=== PATIENT | male | born 1965 | race Caucasian/White ===

== ENCOUNTER 2016-05-24 21:10 | Inpatient (IN) | payer BC ==
--- NOTE | 2016-05-24 22:11 | EDM.PDOC ---
ED HPI RENAL/ - General Chief Complaint: Genitourinary Problem Stated Complaint: KIDNEY INFECTION Time Seen by Provider: 05/24/16 21:55 Source of Information: Reports: Patient, Provider (Camille Wu [facility]) History Limitations: Reports: No limitations - History of Present Illness INITIAL COMMENTS - FREE TEXT/NARRATIVE: Patient presents from the [facility] for evaluation treatment of pyelonephritis. Patient has been experiencing right flank pain for the last 2 days. He reports last night the flank pain was particularly severe. He has narcotic medication at home but did not want to take any. He has been taking Tylenol to control the pain and fevers. Fever was highest of 102.5 at home. Patient has a urostomy and a stent to the right ureter. He is scheduled to have the stent removed in about one week. He follows with urology in [place]. Patient past medical history of bladder cancer. This was treated at [facility]. He has been remission since July of 2014. He is not currently on chemo or radiation for the cancer. Patient has noticed that his urine is darker than normal. He denies any nausea or vomiting. last dose of Tylenol was around 7 PM tonight. Patient was seen at the [facility] today. Labs were done. He lewis an elevated white blood cell count of 16 and a CRP of 8.1. Urine did suggest a urinary tract infection. Urine was sent for culture. Patient was given a 1 L fluid bolus in the clinic after he became slightly hypotensive with a blood pressure of 92/72 and had a near syncopal episode. He was also given IV Rocephin 1 gram. Patient was sent home on macrobid. Patient also has a past medical history of Crohn's disease. He denies any diarrhea, melena, hematochezia or abdominal pain. Location: Reports: flank (right) - Related Data Allergies/ADRs: Allergies Allergy/AdvReac Type Severity Reaction Status Date / Time sulfamethoxazole Allergy Renal Verified 05/24/16 21:24 [From Bactrim] Failure trimethoprim [From Bactrim] Allergy Renal Verified 05/24/16 21:24 Failure Home Meds: Home Meds InFLIXimab [Remicade] 100 mg IV ASDIRECTED 05/24/16 [History] Nitrofurantoin Monohyd/M-Cryst [Macrobid 100 mg Capsule] 100 mg PO BID 05/24/16 [History] Rosuvastatin [Crestor] 10 mg PO DAILY 05/24/16 [History] Past Medical History HEENT History: Reports: Impaired vision Cardiovascular History: Reports: High cholesterol Gastrointestinal History: Reports: Other (see below) Other Gastrointestinal History: crohn's disease Genitourinary History: Reports: Renal calculus, Urostomy, Other (see below) Other Genitourinary History: ureter stent to right side Neurological History: Reports: Headaches, chronic Immunologic History: Reports: Other (see below) Other Immunologic History: is on remicade Oncologic (Cancer) History: Reports: Basal cell carcinoma, Bladder Dermatologic History: Reports: Other (see below) Other Dermatologic History: basal cell carcinoma to nose - Infectious Disease History Infectious Disease History: Reports: Chicken pox - Past Surgical History GI Surgical History: Reports: Appendectomy, Colonoscopy, Small bowel Other GI Surgeries/Procedures: small bowel resection 2014, last colonoscopy January 2016 Musculoskeletal Surgical History: Reports: Arthroscopic knee Dermatological Surgical History: Reports: Skin biopsy Social & Family History - Family History Family Medical History: Noncontributory - Tobacco Use Smoking Status *Q: Current Every Day Smoker Years of Tobacco use: 30 Packs/Tins Daily: 0.5 - Caffeine Use Caffeine Use: Reports: Soda - Recreational Drug Use Recreational Drug Use: No ED ROS GENERAL - Review of Systems Review Of Systems: See Below Constitutional: Reports: fever GI/Abdominal: Denies: Abdominal pain, Hematochezia, Melena, Nausea, Vomiting : Reports: flank pain (right), other (urine is darker than normal). Denies: hematuria ED EXAM, RENAL/ - Physical Exam Exam: See Below Exam Limited By: No limitations General Appearance: alert, WD/WN, no apparent distress Respiratory/Chest: no respiratory distress, lungs clear, normal breath sounds Cardiovascular: normal peripheral pulses, regular rate, rhythm, no murmur GI/Abdominal: normal bowel sounds, soft, non tender (Male) Exam: Other (urostomy to the left mid abdomen with stent in place) Neurological: alert, oriented, normal cognition Psychiatric: normal affect, normal mood Skin Exam: Warm, Dry, Normal color Course - Vital Signs Last Recorded V/S: Last Vital Signs Temp 39.2 C H 05/24/16 23:52 Pulse 100 05/24/16 21:19 Resp 18 05/24/16 21:19 BP 129/78 05/24/16 21:19 Pulse Ox 96 05/24/16 21:19 - Orders/Labs/Meds Orders: Active Orders 24 hr Category Date Time Status Peripheral IV Care [RC] . DIRECTED Care 05/24/16 23:23 Active Abdomen Pelvis wo Cont [CT] Stat Exams 05/24/16 21:47 Taken CULTURE BLOOD [BC] Stat Lab 05/24/16 22:15 Received CULTURE BLOOD [BC] Stat Lab 05/24/16 22:28 Received Levofloxacin/Dextrose 5%-Water [Levaquin in D5W 750 MG/ Med 05/24/16 23:33 Active 150 ML] 750 mg Premix Bag 1 bag IV ONETIME Sodium Chloride 0.9% [Normal Saline] 1,000 ml Med 05/24/16 23:22 Active IV ONETIME Sodium Chloride 0.9% [Normal Saline] 1,000 ml Med 05/24/16 23:34 Active IV ONETIME Sodium Chloride 0.9% [Saline Flush] Med 05/24/16 23:23 Active 10 ml FLUSH ASDIRECTED PRN Blood Culture x2 Reflex Set [OM.PC] Stat Oth 05/24/16 21:47 Ordered Peripheral IV Insertion Adult [OM.PC] Routine Oth 05/24/16 23:22 Ordered Medication Orders Sodium Chloride (Normal Saline) 1,000 mls @ 150 mls/hr IV ONETIME ONE Stop: 05/25/16 06:01 Levofloxacin/Dextrose 750 mg/ (Premix) 150 mls @ 100 mls/hr IV ONETIME ONE Stop: 05/25/16 01:02 Last Admin: 05/24/16 23:52 Dose: 100 mls/hr Sodium Chloride (Normal Saline) 1,000 mls @ 999 mls/hr IV ONETIME ONE Stop: 05/25/16 00:34 Last Admin: 05/24/16 23:52 Dose: 999 mls/hr Sodium Chloride (Saline Flush) 10 ml FLUSH ASDIRECTED PRN PRN Reason: Keep Vein Open Labs: Laboratory Tests 05/24/16 05/24/16 05/24/16 Range/Units 22:28 22:28 22:28 WBC 16.52 H (4.23-9.07) K/mm3 RBC 4.14 L (4.63-6.08) M/mm3 Hgb 13.7 (13.7-17.5) gm/L Hct 41.4 (40.1-51.0) % MCV 100.0 H (79.0-92.2) fl MCH 33.1 H (25.7-32.2) pg MCHC 33.1 (32.2-35.5) g/dl RDW Std Deviation 49.6 H (35.1-43.9) fL Plt Count 158 L (163-337) K/mm3 MPV 9.9 (9.4-12.3) fl Neut % (Auto) 78.3 H (34.0-67.9) % Lymph % (Auto) 10.7 L (21.8-53.1) % [place] % (Auto) 10.3 (5.3-12.2) % Eos % (Auto) 0.1 L (0.8-7.0) Baso % (Auto) 0.2 (0.1-1.2) % Neut # (Auto) 12.94 H (1.78-5.38) K/mm3 Lymph # (Auto) 1.77 (1.32-3.57) K/mm3 [place] # (Auto) 1.70 H (0.30-0.82) K/mm3 Eos # (Auto) 0.02 L (0.04-0.54) K/mm3 Baso # (Auto) 0.03 (0.01-0.08) K/mm3 Manual Slide Review Abnormal smear Lactic Acid 1.8 (0.4-2.0) mmol/L C-Reactive Protein 17.6 H* (<1.0) mg/dL Meds: Medications Generic Name Dose Route Start Last Admin Trade Name Freq PRN Reason Stop Dose Admin Sodium Chloride 1,000 mls @ 150 mls/hr 05/24/16 23:22 Normal Saline IV 05/25/16 06:01 ONETIME ONE Levofloxacin/Dextrose 750 mg/ 150 mls @ 100 mls/hr 05/24/16 23:33 05/24/16 23 :52 Premix IV 05/25/16 01:02 100 mls/hr ONETIME ONE Administration Sodium Chloride 1,000 mls @ 999 mls/hr 05/24/16 23:34 05/24/16 23:52 Normal Saline IV 05/25/16 00:34 999 mls/hr ONETIME ONE Administration Sodium Chloride 10 ml 05/24/16 23:23 Saline Flush FLUSH ASDIRECTED PRN Keep Vein Open Discontinued Medications Generic Name Dose Route Start Last Admin Trade Name Kiran PRN Reason Stop Dose Admin Acetaminophen 650 mg 05/24/16 23:23 05/24/16 23:52 Tylenol PO 05/24/16 23:24 650 mg NOW ONE Administration - Radiology Interpretation Free Text/Narrative:: CT of the abdomen and pelvis impression per vrad 1. right ureteral stent appears in good position with no hydronephrosis. 2. Right renal. Fraction is nonspecific. This could be from recent obstruction, recent intervention or for pyelonephritis. 3. Right-sided neprolithiasis. 4. Parastomal hernia. CT Results Date: 05/24/16 - Re-Assessments/Exams Free Text/Narrative Re-Assessment/Exam: 05/24/16 23:52 I reviewed the patient's labs from earlier today. His white blood cell count was elevated at 16.84 ESR was elevated at 34. CRP was elevated 8.1. Sodium is 138, potassium was 3.3. Anion gap was 18.3. Creatinine was 1.8. UA showed 3+ protein, 2+ blood, positive nitrates, 1+ leukocytes and many bacteria on microscopy. I contacted the lab and they indeed received the urine for culture. Patient has blood cultures pending. I repeated the patient's CBC, CRP and added on a lactic acid. whirw Blood cell count returned elevated at 16.52, hgb is 13.7 and platelets are 158. CRP is elevated 17.6. . Lactic acid within normal limits a 1.8. I reviewed the patient's case with him. I feel that he would benefit from inpatient admission. He agrees to this. I discussed the case with Dr. Ross, hospitalist, she agrees to the admission. She asked that we give him a 1 L normal saline bolus followed by normal saline at 150 mils per hour. She also asked we give Levaquin 750. Departure - Departure Time of Disposition: 23:57 Disposition: Admitted As Inpatient 64 Condition: serious Clinical Impression: Pyelonephritis Forms: ED Department Discharge Additional Instructions: Patient to be admitted to med/surg with tele under Dr. Ross. - My Orders Last 24 Hours: My Active Orders 04/17/17 21:47 Abdomen Pelvis wo Cont [CT] Stat Blood Culture x2 Reflex Set [OM.PC] Stat 05/24/16 22:15 CULTURE BLOOD [BC] Stat 05/24/16 22:28 CULTURE BLOOD [BC] Stat 05/24/16 23:22 Sodium Chloride 0.9% [Normal Saline] 1,000 ml IV ONETIME Peripheral IV Insertion Adult [OM.PC] Routine 05/24/16 23:23 Peripheral IV Care [RC] . DIRECTED Sodium Chloride 0.9% [Saline Flush] 10 ml FLUSH ASDIRECTED PRN 05/24/16 23:33 Levofloxacin/Dextrose 5%-Water [Levaquin in D5W 750 MG/150 ML] 750 mg Premix Bag 1 bag IV ONETIME 05/24/16 23:34 Sodium Chloride 0.9% [Normal Saline] 1,000 ml IV ONETIME - Assessment/Plan Last 24 Hours: My Active Orders 05/24/16 21:47 Abdomen Pelvis wo Cont [CT] Stat Blood Culture x2 Reflex Set [OM.PC] Stat 05/24/16 22:15 CULTURE BLOOD [BC] Stat 05/24/16 22:28 CULTURE BLOOD [BC] Stat 05/24/16 23:22 Sodium Chloride 0.9% [Normal Saline] 1,000 ml IV ONETIME Peripheral IV Insertion Adult [OM.PC] Routine 05/24/16 23:23 Peripheral IV Care [RC] . DIRECTED Sodium Chloride 0.9% [Saline Flush] 10 ml FLUSH ASDIRECTED PRN 05/24/16 23:33 Levofloxacin/Dextrose 5%-Water [Levaquin in D5W 750 MG/150 ML] 750 mg Premix Bag 1 bag IV ONETIME 05/24/16 23:34 Sodium Chloride 0.9% [Normal Saline] 1,000 ml IV ONETIME
[2016-05-24] MEDS ORDERED: Sodium Chloride 0.9% 1,000 ML IV ONE ×2 (23:22→23:34)
[2016-05-24] MEDS ORDERED: Acetaminophen 325 MG Tab PO ONE (23:23)
[2016-05-24] MEDS ORDERED: Sodium Chloride 0.9% 10 ML Syringe FLUSH PRN (23:23)
[2016-05-24] MEDS ORDERED: Levofloxacin/Dextrose 5%-Water 750 MG in Premix Bag 1 BAG IV ONE (23:33)
[2016-05-25] MEDS ORDERED: Temazepam 30 MG Cap PO PRN (00:23)
[2016-05-25] MEDS ORDERED: Morphine 2 MG/ML Syringe IVPUSH PRN (00:24)
[2016-05-25] MEDS: Sodium Chloride 0.9% 1,000 ML IV SCH ×4 (04:06→23:51)
[2016-05-25] MEDS: Acetaminophen 325 MG Tab PO PRN ×3 (07:12→23:50)
[2016-05-25] MEDS ORDERED: Acetaminophen/HYDROcodone 325-5 MG Tab PO PRN (08:14)
--- NOTE | 2016-05-25 08:54 | CT ---
CT abdomen and pelvis Technique: Multiple axial sections were obtained from the top of the liver inferiorly through the pubic symphysis. Intravenous and oral contrast not utilized. Study has been performed as a ureteral stone protocol. Comparison: Previous CT abdomen and pelvis exam of 10/31/13 is available. Findings: Interval ileal conduit is seen from prior study with bladder having been removed. There is a right ureteral stent being seen within the right renal pelvis which extends out the ileal conduit ostomy. Left ureter is mildly prominent but no obstructing calculi are seen and findings likely relate to the previous surgery. Small nonobstructing stone noted within the right kidney measuring 5 mm. Low-density lesion noted within the lower left kidney compatible with a cyst which appears stable from prior exam measuring about 1.4 cm. Inflammatory-type change noted around the right kidney. Visualized lung bases show nothing acute. Liver shows diffuse fatty infiltration with no focal abnormality. Spleen appears within normal limits. Adrenal glands show no nodule. Pancreas is within normal limits. Aorta and iliac vessels shows atherosclerotic change without aneurysmal dilatation. Retroperitoneal surgical clips noted at the aortoiliac bifurcation. No pelvic mass or adenopathy is seen. Surgical clips seen along the pelvic sidewalls. Surgical anastomotic sutures noted within a portion of ileum within the upper right abdomen from previous surgery. Minimal increased stool noted within the colon. Peristomal hernia is identified within the left abdomen containing nondilated loops of small bowel. Bone window setting show minimal degenerative change within the spine. Impression: 1. Ileal conduit surgery for prior bladder surgery. Stent within the right renal pelvis extending out the ileal conduit ostomy. Slightly prominent left ureter believed to be incidental and from prior surgery. Inflammatory change around the right kidney possibly due to previous surgical intervention with stent placement versus pyelonephritis if patient has correlating symptoms. 2. Peristomal hernia containing nondilated small bowel loops within the left abdomen. 3. Other incidental findings as described above. Agree with preliminary report issued by [employer] (preliminary report dictated on 05/25/16, 12:11 AM Central Time Diagnostic code #2
[2016-05-25] MEDS ORDERED: Rosuvastatin 10 MG Tab PO SCH (11:00)
[2016-05-25] MEDS: Nicotine 21 MG/24 Hr Patch TRDERM SCH (11:00)
--- NOTE | 2016-05-25 12:35 | PCM.HP ---
H&P History of Present Illness - General Date of Service: 05/25/16 Admit Problem/Dx: Admission Diagnosis/Problem Admission Diagnosis/Problem Pyelonephritis Source of Information: Provider History Limitations: Reports: No limitations - History of Present Illness Initial Comments - Free Text/Narative: 50 year old male with history of bladder cancer is s/p urostomy was seen at the [facility] and was treated empirically for a UTI. he has a urosotmy and has a history of multiple UTIs. He was febrile on presentation to the clinic with a temp of 102.0 F. A CBC at that time documented a white count of 16.84, the UA was positive for nitrite as well as LE. The CMP documented a LEONEL/CR of 24/ 1.8 with a GFR of 40. The patient will be admitted for a UTI to the [facility]. Onset of Symptoms: Reports: gradual Duration of Symptoms: Reports: Day(s):, Getting worse Location: Reports: abdomen Quality: Reports: Same as previous episode Severity: moderate Improves with: Reports: Medication Worsens with: Reports: None Associated Symptoms: Reports: diaphoresis, fever/chills, nausea/vomiting right back Pain Score (Numeric/FACES): 4 - Related Data Allergies/Adverse Reactions: Allergies Allergy/AdvReac Type Severity Reaction Status Date / Time sulfamethoxazole AdvReac Renal Verified 05/25/16 10:58 [From Bactrim] Failure trimethoprim [From Bactrim] AdvReac Renal Verified 05/25/16 10:58 Failure Home Medications: Home Meds InFLIXimab [Remicade] 100 mg IV ASDIRECTED 05/24/16 [History] Nitrofurantoin Monohyd/M-Cryst [Macrobid 100 mg Capsule] 100 mg PO BID 05/24/16 [History] Rosuvastatin [Crestor] 10 mg PO ASDIRECTED 05/24/16 [History] Past Medical History HEENT History: Reports: Impaired vision Cardiovascular History: Reports: High cholesterol Gastrointestinal History: Reports: Bowel obstruction, Other (see below) Other Gastrointestinal History: crohn's disease Genitourinary History: Reports: Renal calculus, Urostomy, Other (see below) Other Genitourinary History: ureter stent to right side Neurological History: Reports: Headaches, chronic Immunologic History: Reports: Other (see below) Other Immunologic History: is on remicade Oncologic (Cancer) History: Reports: Basal cell carcinoma, Bladder Dermatologic History: Reports: Other (see below) Other Dermatologic History: basal cell carcinoma to nose - Infectious Disease History Infectious Disease History: Reports: Chicken pox - Past Surgical History HEENT Surgical History: Reports: Adenoidectomy, Tonsillectomy Cardiovascular Surgical History: Reports: None GI Surgical History: Reports: Appendectomy, Colonoscopy, Small bowel Other GI Surgeries/Procedures: small bowel resection 2014, last colonoscopy January 2016 Musculoskeletal Surgical History: Reports: Arthroscopic knee Oncologic Surgical History: Reports: Other (see below) Other Oncologic Surgeries/Procedures: Bladder removed july 2014. Pt has urostomy with stents placed may 2015. Stents are changed every 3 months due to change 06/01/16 Dermatological Surgical History: Reports: Skin biopsy Social & Family History - Family History Family Medical History: Noncontributory - Tobacco Use Smoking Status *Q: Current Every Day Smoker Years of Tobacco use: 30 Packs/Tins Daily: 0 Used Tobacco, but Quit: No Second Hand Smoke Exposure: No - Caffeine Use Caffeine Use: Reports: Soda - Recreational Drug Use Recreational Drug Use: No H&P Review of Systems - Review of Systems: Review Of Systems: See Below General: Reports: chills, malaise, weakness HEENT: Reports: no symptoms Pulmonary: Reports: No Symptoms Cardiovascular: Reports: no symptoms Gastrointestinal: Reports: Abdominal pain Genitourinary: Reports: burning, pain Musculoskeletal: Reports: back pain (right sided). Denies: no symptoms Skin: Reports: no symptoms Psychiatric: Reports: no symptoms Neurological: Reports: Dizziness Hematologic/Lymphatic: Reports: no symptoms Immunologic: Reports: no symptoms Exam - Exam Exam: See Below - Vital Signs Vital Signs: Last Vital Signs Temp 36.9 C 05/25/16 12:07 Pulse 65 05/25/16 12:07 Resp 14 05/25/16 12:07 BP 111/78 05/25/16 12:07 Pulse Ox 95 05/25/16 12:07 Weight: 109.86 kg - Exam Quality Assessment: urinary catheter, DVT prophylaxis General: alert, oriented, cooperative HEENT: Nares patent, Normal nasal septum, Pupils equal, Pupils reactive Neck: supple, trachea midline Lungs: Normal respiratory effort Cardiovascular: regular rate, regular rhythm Abdomen: normal bowel sounds, soft (Male) Exam: Other (Urostomy in situ) Rectal (Males) Exam: Normal exam Back Exam: normal inspection Extremities: normal inspection Skin: warm Neurological: cranial nerves intact, normal speech Neuro Extensive - Mental Status: alert, oriented x3, normal mood/affect, normal cognition, memory intact Neuro Extensive - Motor, Sensory, Reflexes: CN II-XII intact Psychiatric: alert - Patient Data Lab Results last 24 hrs: Laboratory Results - last 24 hr 05/25/16 05/25/16 05/25/16 Range/Units 06:10 06:19 06:19 WBC 14.02 H (4.23-9.07) K/mm3 RBC 4.21 L (4.63-6.08) M/mm3 Hgb 13.8 (13.7-17.5) gm/L Hct 42.2 (40.1-51.0) % MCV 100.2 H (79.0-92.2) fl MCH 32.8 H (25.7-32.2) pg MCHC 32.7 (32.2-35.5) g/dl RDW Std Deviation 50.2 H (35.1-43.9) fL Plt Count 159 L (163-337) K/mm3 MPV 10.7 (9.4-12.3) fl Neut % (Auto) 74.5 H (34.0-67.9) % Lymph % (Auto) 14.1 L (21.8-53.1) % [place] % (Auto) 10.8 (5.3-12.2) % Eos % (Auto) 0.1 L (0.8-7.0) Baso % (Auto) 0.1 (0.1-1.2) % Neut # (Auto) 10.46 H (1.78-5.38) K/mm3 Lymph # (Auto) 1.97 (1.32-3.57) K/mm3 [place] # (Auto) 1.51 H (0.30-0.82) K/mm3 Eos # (Auto) 0.01 L (0.04-0.54) K/mm3 Baso # (Auto) 0.02 (0.01-0.08) K/mm3 Manual Slide Review Normal smear Sodium 138 (136-145) mEq/L Potassium 3.8 (3.5-5.1) mEq/L Chloride 104 (98-107) mEq/L Carbon Dioxide 22 (21-32) mEq/L Anion Gap 15.8 H (5-15) BUN 18 (7-18) mg/dL Creatinine 1.5 H (0.7-1.3) mg/dL Est Cr Clr Drug Dosing 61.36 mL/min Estimated GFR (MDRD) 49 (>60) mL/min BUN/Creatinine Ratio 12.0 L (14-18) Glucose 114 H (74-106) mg/dL Lactic Acid 1.6 (0.4-2.0) mmol/L Calcium 8.4 L (8.5-10.1) mg/dL C-Reactive Protein 21.4 H* (<1.0) mg/dL Result Diagrams: 05/25/16 06:19 05/25/16 06:19 *Q Meaningful Use (ADM) - VTE *Q VTE Criteria *Q: - Stroke *Q Stroke Criteria *Q: - AMI *Q AMI Criteria *Q: - Problem List (1) Bladder cancer SNOMED Code(s): 005557660 ICD Code: C67.9 - MALIGNANT NEOPLASM OF BLADDER, UNSPECIFIED Status: Acute Current Visit: Yes (2) Renal abscess SNOMED Code(s): 3418221 ICD Code: N15.1 - RENAL AND PERINEPHRIC ABSCESS Status: Acute Current Visit: Yes (3) Pyelonephritis SNOMED Code(s): 91110140 ICD Code: N12 - TUBULO-INTERSTITIAL NEPHRITIS, NOT SPCF ACUTE OR CHRONIC Status: Acute Current Visit: Yes Problem List Initiated/Reviewed/Updated: Yes Orders Last 24hrs: Active Orders 24 hr Category Date Time Status Activity as Tolerated [RC] QSHIFT Care 05/25/16 00:26 Active Consult to [place] Nurse [CONS] Routine Cons 05/25/16 10:47 Active Heart Healthy Diet [DIET] Diet 05/25/16 Dinner Active BMP [BASIC METABOLIC PANEL,BMP] [CHEM] DAILY Lab 05/26/16 05:00 Ordered BMP [BASIC METABOLIC PANEL,BMP] [CHEM] DAILY Lab 05/27/16 05:00 Ordered BMP [BASIC METABOLIC PANEL,BMP] [CHEM] DAILY Lab 05/28/16 05:00 Ordered CBC WITH AUTO DIFF [HEME] DAILY Lab 05/26/16 05:00 Ordered CBC WITH AUTO DIFF [HEME] DAILY Lab 05/27/16 05:00 Ordered CBC WITH AUTO DIFF [HEME] DAILY Lab 05/28/16 05:00 Ordered CRP [C-REACTIVE PROTEIN] [CHEM] DAILY Lab 05/26/16 05:00 Ordered CRP [C-REACTIVE PROTEIN] [CHEM] DAILY Lab 05/27/16 05:00 Ordered CRP [C-REACTIVE PROTEIN] [CHEM] DAILY Lab 05/28/16 05:00 Ordered CULTURE URINE [RM] Routine Lab 05/25/16 12:30 Ordered LACTIC ACID [CHEM] DAILY Lab 05/26/16 05:00 Ordered LACTIC ACID [CHEM] DAILY Lab 05/27/16 05:00 Ordered Acetaminophen [Tylenol] Med 05/25/16 00:22 Active 650 mg PO Q6H PRN Acetaminophen/HYDROcodone [[place] 325-5 MG] Med 05/25/16 08:14 Active 1 - 2 tab PO Q4H PRN Morphine Med 05/25/16 00:24 Active 1 mg IVPUSH Q4H PRN Nicotine [Habitrol] Med 05/25/16 09:30 Active 21 mg TRDERM DAILY Remove Patch Med 05/26/16 09:00 Active 1 ea TRDERM DAILY Rosuvastatin [Crestor] Med 05/25/16 11:00 Active 10 mg PO Q48H Sodium Chloride 0.9% [Normal Saline] 1,000 ml Med 05/25/16 00:30 Active IV ASDIRECTED Temazepam [Restoril] Med 05/25/16 00:23 Active 30 mg PO BEDTIME PRN cefTRIAXone [Rocephin] 2 gm Med 05/25/16 13:00 Active Sodium Chloride 0.9% [Normal Saline] 100 ml IV Q24H Code Status [Resuscitation Status] Routine Resus Stat 05/25/16 00:26 Ordered Medication Orders Acetaminophen (Tylenol) 650 mg PO Q6H PRN PRN Reason: Pain Last Admin: 05/25/16 07:12 Dose: 650 mg Hydrocodone Bitart/Acetaminophen ([place] 325-5 Mg) 1 - 2 tab PO Q4H PRN PRN Reason: Pain Sodium Chloride (Normal Saline) 1,000 mls @ 150 mls/hr IV ASDIRECTED FANNY Last Admin: 05/25/16 11:07 Dose: 150 mls/hr Infusion: 05/25/16 10:47 Dose: 150 mls/hr Admin: 05/25/16 04:06 Dose: 150 mls/hr Ceftriaxone Sodium 2 gm/ (Sodium Chloride) 100 mls @ 200 mls/hr IV Q24H COUNT INCLUDES THE [facility] Miscellaneous Information (Remove Patch) 1 ea TRDERM DAILY COUNT INCLUDES THE [facility] Morphine Sulfate (Morphine) 1 mg IVPUSH Q4H PRN PRN Reason: Pain Nicotine (Habitrol) 21 mg TRDERM DAILY COUNT INCLUDES THE [facility] Last Admin: 05/25/16 11:00 Dose: Not Given Rosuvastatin Calcium (Crestor) 10 mg PO Q48H COUNT INCLUDES THE [facility] Last Admin: 05/25/16 11:07 Dose: 10 mg Sodium Chloride (Saline Flush) 10 ml FLUSH ASDIRECTED PRN PRN Reason: Keep Vein Open Last Admin: 05/24/16 23:56 Dose: 10 ml Temazepam (Restoril) 30 mg PO BEDTIME PRN PRN Reason: Insomnia Assessment/Plan Comment:: Impression: AUTI/pyelonephritis History of Bladder Cancer S/P Urostomy with stent History of multi-drug resistant UTIs Recent Yeast UTI completed Fluconazole as an outpatient. Leukocytosis Plan: MS tele Clear Liquid diet Initial dose of Levoquin in the ED, received Rocephin in the [facility]. Discuss options with pharmacy for UTI coverage. Obtain work up completed at the [facility] DVT/GI prophylaxis Home meds Daily Labs
[2016-05-25] MEDS: cefTRIAXone 2 GM in Sodium Chloride 0.9% 100 ML IV SCH (12:40)
[2016-05-25] MEDS ORDERED: Magnesium Hydroxide 400 MG/5 ML Susp 30 ML Cup PO PRN (18:20)
[2016-05-26] MEDS: Sodium Chloride 0.9% 1,000 ML IV SCH (06:59)
[2016-05-26] MEDS ORDERED: Sodium Chloride 0.9% 10 ML Syringe FLUSH PRN (10:15)
[2016-05-26] MEDS: REMOVE NICOTINE TRDERM SCH (10:20)
[2016-05-26] MEDS: Nicotine 21 MG/24 Hr Patch TRDERM SCH (10:20)
[2016-05-26] MEDS: Enoxaparin 40 MG/0.4 ML Syringe SUBCUT SCH (10:21)
[2016-05-26] MEDS ORDERED: Potassium Chloride 10% 20 MEQ/15 ML Soln 30 ML UD Cup PO ONE (10:35)
[2016-05-26] MEDS: cefTRIAXone 2 GM in Sodium Chloride 0.9% 100 ML IV SCH (12:16)
--- NOTE | 2016-05-26 13:41 | PCM.PN ---
- General Info Date of Service: 05/26/16 Functional Status: Reports: tolerating diet, ambulating, urinating - Review of Systems General: Reports: No Symptoms HEENT: Reports: no symptoms Pulmonary: Reports: no symptoms Cardiovascular: Reports: No Symptoms Gastrointestinal: Reports: No symptoms Genitourinary: Reports: no symptoms Musculoskeletal: Reports: no symptoms Skin: Reports: no symptoms Neurological: Reports: No Symptoms Psychiatric: Reports: no symptoms - Patient Data Vitals - most recent: Last Vital Signs Temp 36.8 C 05/26/16 11:50 Pulse 64 05/26/16 11:50 Resp 18 05/26/16 11:50 BP 141/86 H 05/26/16 11:50 Pulse Ox 98 05/26/16 11:50 Weight - most recent: 110.813 kg I&O - last 24 hours: Intake & Output 05/25/16 05/26/16 05/26/16 22:59 06:59 14:59 Intake Total 3711 2656 Output Total 800 2050 Balance 2911 606 Lab Results last 24 hrs: Laboratory Results - last 24 hr 05/26/16 05/26/16 05/26/16 Range/Units 04:37 04:37 04:37 WBC 9.58 H (4.23-9.07) K/mm3 RBC 3.65 L (4.63-6.08) M/mm3 Hgb 12.0 L (13.7-17.5) gm/L Hct 36.4 L (40.1-51.0) % MCV 99.7 H (79.0-92.2) fl MCH 32.9 H (25.7-32.2) pg MCHC 33.0 (32.2-35.5) g/dl RDW Std Deviation 50.0 H (35.1-43.9) fL Plt Count 150 L (163-337) K/mm3 MPV 10.0 (9.4-12.3) fl Neut % (Auto) 66.3 (34.0-67.9) % Lymph % (Auto) 20.7 L (21.8-53.1) % [place] % (Auto) 12.0 (5.3-12.2) % Eos % (Auto) 0.4 L (0.8-7.0) Baso % (Auto) 0.1 (0.1-1.2) % Neut # (Auto) 6.35 H (1.78-5.38) K/mm3 Lymph # (Auto) 1.98 (1.32-3.57) K/mm3 [place] # (Auto) 1.15 H (0.30-0.82) K/mm3 Eos # (Auto) 0.04 (0.04-0.54) K/mm3 Baso # (Auto) 0.01 (0.01-0.08) K/mm3 Sodium 137 (136-145) mEq/L Potassium 3.3 L (3.5-5.1) mEq/L Chloride 106 (98-107) mEq/L Carbon Dioxide 19 L (21-32) mEq/L Anion Gap 15.3 H (5-15) BUN 18 (7-18) mg/dL Creatinine 1.4 H (0.7-1.3) mg/dL Est Cr Clr Drug Dosing 65.74 mL/min Estimated GFR (MDRD) 53 (>60) mL/min BUN/Creatinine Ratio 12.9 L (14-18) Glucose 160 H (74-106) mg/dL Lactic Acid 1.1 (0.4-2.0) mmol/L Calcium 7.8 L (8.5-10.1) mg/dL C-Reactive Protein 15.9 H* (<1.0) mg/dL Med Orders - Current: Current Medications Acetaminophen (Tylenol) 650 mg PO Q6H PRN PRN Reason: Pain Last Admin: 05/25/16 23:50 Dose: 650 mg Hydrocodone Bitart/Acetaminophen ([place] 325-5 Mg) 1 - 2 tab PO Q4H PRN PRN Reason: Pain Enoxaparin Sodium (Lovenox) 40 mg SUBCUT DAILY [facility] Last Admin: 05/26/16 10:21 Dose: Not Given Sodium Chloride (Normal Saline) 1,000 mls @ 150 mls/hr IV ASDIRECTED [facility] Last Admin: 05/26/16 06:59 Dose: 150 mls/hr Ceftriaxone Sodium 2 gm/ (Sodium Chloride) 100 mls @ 200 mls/hr IV Q24H [facility] Last Admin: 05/26/16 12:16 Dose: 200 mls/hr Magnesium Hydroxide (Milk Of Magnesia) 30 ml PO DAILY PRN PRN Reason: Constipation Miscellaneous Information (Remove Patch) 1 ea TRDERM DAILY [facility] Last Admin: 05/26/16 10:20 Dose: Not Given Morphine Sulfate (Morphine) 1 mg IVPUSH Q4H PRN PRN Reason: Pain Nicotine (Habitrol) 21 mg TRDERM DAILY [facility] Last Admin: 05/26/16 10:20 Dose: Not Given Rosuvastatin Calcium (Crestor) 10 mg PO Q48H [facility] Last Admin: 05/25/16 11:07 Dose: 10 mg Sodium Chloride (Saline Flush) 10 ml FLUSH ASDIRECTED PRN PRN Reason: Keep Vein Open Temazepam (Restoril) 30 mg PO BEDTIME PRN PRN Reason: Insomnia Discontinued Medications Acetaminophen (Tylenol) 650 mg PO NOW ONE Stop: 05/24/16 23:24 Last Admin: 05/24/16 23:52 Dose: 650 mg Sodium Chloride (Normal Saline) 1,000 mls @ 150 mls/hr IV ONETIME ONE Stop: 05/25/16 06:01 Last Admin: 05/25/16 04:07 Dose: Not Given Levofloxacin/Dextrose 750 mg/ (Premix) 150 mls @ 100 mls/hr IV ONETIME ONE Stop: 05/25/16 01:02 Last Admin: 05/24/16 23:52 Dose: 100 mls/hr Sodium Chloride (Normal Saline) 1,000 mls @ 999 mls/hr IV ONETIME ONE Stop: 05/25/16 00:34 Last Admin: 05/24/16 23:52 Dose: 999 mls/hr Potassium Chloride (Potassium Chloride) 60 meq PO ONETIME ONE Stop: 05/26/16 10:36 Last Admin: 05/26/16 11:41 Dose: 60 meq Sodium Chloride (Saline Flush) 10 ml FLUSH ASDIRECTED PRN PRN Reason: Keep Vein Open Last Admin: 05/24/16 23:56 Dose: 10 ml - Exam Quality Assessment: DVT prophylaxis General: alert, oriented, cooperative, no acute distress HEENT: Pupils equal, Pupils reactive, EOMI Neck: supple, trachea midline, no JVD Lungs: Normal respiratory effort Cardiovascular: Regular Rate, Regular Rhythm Abdomen: bowel sounds present, soft, no tenderness, no distension (Male) Exam: Deferred Back Exam: normal inspection Extremities: no edema, normal pulses Skin: warm Neurological: no new focal deficit, normal gait, normal speech Psy/Mental Status: alert, normal affect, normal mood - Problem List & Annotations (1) Bladder cancer SNOMED Code(s): 085406283 Code(s): C67.9 - MALIGNANT NEOPLASM OF BLADDER, UNSPECIFIED Status: Acute Current Visit: Yes (2) Renal abscess SNOMED Code(s): 0553456 Code(s): N15.1 - RENAL AND PERINEPHRIC ABSCESS Status: Acute Current Visit: Yes (3) Pyelonephritis SNOMED Code(s): 74936160 Code(s): N12 - TUBULO-INTERSTITIAL NEPHRITIS, NOT SPCF ACUTE OR CHRONIC Status: Acute Current Visit: Yes - Problem List Review Problem List Initiated/Reviewed/Updated: Yes - My Orders Last 24 Hours: My Active Orders 05/25/16 13:00 cefTRIAXone [Rocephin] 2 gm Sodium Chloride 0.9% [Normal Saline] 100 ml IV Q24H 05/25/16 14:58 Antiembolic Devices [RC] PER UNIT ROUTINE OBDULIA Hose [Antiembolic Hose] [OM.PC] Routine 05/25/16 18:20 Magnesium Hydroxide [Milk of Magnesia] 30 ml PO DAILY PRN 05/25/16 Dinner Heart Healthy Diet [DIET] 05/26/16 09:00 Enoxaparin [Lovenox] 40 mg SUBCUT DAILY Remove Patch 1 ea TRDERM DAILY 05/26/16 10:15 Sodium Chloride 0.9% [Saline Flush] 10 ml FLUSH ASDIRECTED PRN 05/27/16 05:00 BMP [BASIC METABOLIC PANEL,BMP] [CHEM] DAILY CBC WITH AUTO DIFF [HEME] DAILY CRP [C-REACTIVE PROTEIN] [CHEM] DAILY LACTIC ACID [CHEM] DAILY 05/27/16 07:00 CBC W/O DIFF,HEMOGRAM [HEME] MOTH@0700 05/28/16 05:00 BMP [BASIC METABOLIC PANEL,BMP] [CHEM] DAILY CBC WITH AUTO DIFF [HEME] DAILY CRP [C-REACTIVE PROTEIN] [CHEM] DAILY 05/31/16 07:00 CBC W/O DIFF,HEMOGRAM [HEME] MOTH@0700 06/03/16 07:00 CBC W/O DIFF,HEMOGRAM [HEME] MOTH@0700 06/07/16 07:00 CBC W/O DIFF,HEMOGRAM [HEME] MOTH@0700 06/10/16 07:00 CBC W/O DIFF,HEMOGRAM [HEME] MOTH@0700 06/14/16 07:00 CBC W/O DIFF,HEMOGRAM [HEME] MOTH@0700 - Plan Plan:: Impression: AUTI/pyelonephritis History of Bladder Cancer S/P Urostomy with stent History of multi-drug resistant UTIs Recent Yeast UTI completed Fluconazole as an outpatient. Leukocytosis improving Plan: Initial dose of Levoquin in the ED, received Rocephin in the [facility]. OK to DC after Rocephin, change to oral equivalent at [place]. Follow up in 2 weeks in [place] after Urology appt next week. DVT/GI prophylaxis Home meds Daily Labs DC 05/27/16 after ATB.
--- NOTE | 2016-05-27 08:49 | PCM.DCSUM1 ---
<Nupur Starr - Last Filed: 05/27/16 08:53> Discharge Summary - Hospital Course Free Text/Narrative:: 50 year old male with history of bladder cancer is s/p urostomy (2014) was seen at the [facility] and was treated empirically for a UTI. He has a urosotmy and has a history of multiple UTIs. He was febrile on presentation to the clinic with a temp of 102.0 F. A CBC at that time documented a white count of 16.84, the UA was positive for nitrite as well as LE. The CMP documented a LEONEL/ CR of 24/1.8 with a GFR of 40. The patient will be admitted for a complicated UTI to the [facility] tele unit. Patient was hydrated with IVF, treated with 3 doses of IV rocephin. He tolerated well, fevers resolved. Labs improved with normal WBC at time of discharge. Normal BMP. CRP had improved. He wanted to be discharged almost immediately after admission, Dr. Ross was able to convince him to stay for 3 days of IV treatment. He will be discharged home on macrobid 100mg BID x 5 more days with follow up with his PCP, STEPHON Lancaster within 7 days of discharge. - Discharge Data Discharge Date: 05/27/16 (admit date 05/25/16) Discharge Disposition: Home, Self-Care 01 Condition: Fair - Patient Summary/Data Operative Procedure(s) Performed: None Complications: None Consults: Consultations 05/25/16 10:47 Consult to Manifest Clerk [CONS] Routine Labs Pending at D/C: None Recommended Follow-up Testing/Procedures: Follow up with PCP, Camille Wu within 5-7 days of discharge for recheck Recommend stop smoking Push fluids Planned Operative Procedure(s) after DC: None Hospital Course: As above - Patient Instructions Diet: Usual Diet as Tolerated, Drink 8-10+ Glasses/Day Activity: As Tolerated Driving: May Drive Today Showering/Bathing: May Shower Wound/Incision Care: Keep Operative Site/Wound Site Clean and Dry Notify Provider of: Fever, Increased Pain, Drainage, Nausea and/or Vomiting - Discharge Plan Prescriptions/Med Rec: Nitrofurantoin [place]/Macrocryst [Macrobid] 100 mg PO BID #10 cap Home Medications: Home Meds InFLIXimab [Remicade] 100 mg IV ASDIRECTED 05/24/16 [History] Nitrofurantoin Monohyd/M-Cryst [Macrobid 100 mg Capsule] 100 mg PO BID 05/24/16 [History] Rosuvastatin [Crestor] 10 mg PO ASDIRECTED 05/24/16 [History] Nitrofurantoin [place]/Macrocryst [Macrobid] 100 mg PO BID #10 cap 05/27/16 [Rx] Patient Handouts: Smoking Cessation, Tips for Success, [id number], Pyelonephritis, Adult, [id number] Referrals: Camille Wu, BIOMETRICS SPECIALIST [Primary Care Provider] - - Discharge Summary/Plan Comment DC Time >30 min.: Yes (40 min) - Review of Systems General: Reports: No Symptoms HEENT: Reports: no symptoms Pulmonary: Reports: no symptoms Cardiovascular: Reports: No Symptoms Gastrointestinal: Reports: No symptoms Genitourinary: Reports: other (urostomy draining clear yellow urine) Musculoskeletal: Reports: no symptoms Skin: Reports: no symptoms Neurological: Reports: No Symptoms Psychiatric: Reports: no symptoms - Patient Data Vitals - Most Recent: Last Vital Signs Temp 98.8 F 05/27/16 05:06 Pulse 54 L 05/27/16 05:06 Resp 18 05/27/16 05:06 BP 121/76 05/27/16 05:06 Pulse Ox 97 05/27/16 05:06 Weight - Most Recent: 108.862 kg I&O - Last 24 hours: Intake & Output 05/26/16 05/27/16 05/27/16 22:59 06:59 14:59 Intake Total 2910 2000 Output Total 1726 0320 Balance 1185 -1950 Lab Results - Last 24 hrs: Laboratory Results - last 24 hr 05/27/16 05/27/16 05/27/16 Range/Units 05:45 05:45 05:45 WBC 8.32 (4.23-9.07) K/mm3 RBC 3.88 L (4.63-6.08) M/mm3 Hgb 12.9 L (13.7-17.5) gm/L Hct 38.5 L (40.1-51.0) % MCV 99.2 H (79.0-92.2) fl MCH 33.2 H (25.7-32.2) pg MCHC 33.5 (32.2-35.5) g/dl RDW Std Deviation 49.8 H (35.1-43.9) fL Plt Count 166 (163-337) K/mm3 MPV 9.9 (9.4-12.3) fl Neut % (Auto) 52.4 (34.0-67.9) % Lymph % (Auto) 29.3 (21.8-53.1) % [place] % (Auto) 15.1 H (5.3-12.2) % Eos % (Auto) 2.3 (0.8-7.0) Baso % (Auto) 0.4 (0.1-1.2) % Neut # (Auto) 4.36 (1.78-5.38) K/mm3 Lymph # (Auto) 2.44 (1.32-3.57) K/mm3 [place] # (Auto) 1.26 H (0.30-0.82) K/mm3 Eos # (Auto) 0.19 (0.04-0.54) K/mm3 Baso # (Auto) 0.03 (0.01-0.08) K/mm3 Manual Slide Review Normal smear Sodium 138 (136-145) mEq/L Potassium 3.9 (3.5-5.1) mEq/L Chloride 107 (98-107) mEq/L Carbon Dioxide 21 (21-32) mEq/L Anion Gap 13.9 (5-15) BUN 14 (7-18) mg/dL Creatinine 1.1 (0.7-1.3) mg/dL Est Cr Clr Drug Dosing 83.67 mL/min Estimated GFR (MDRD) > 60 (>60) mL/min BUN/Creatinine Ratio 12.7 L (14-18) Glucose 108 H (74-106) mg/dL Lactic Acid 0.5 (0.4-2.0) mmol/L Calcium 8.4 L (8.5-10.1) mg/dL C-Reactive Protein 11.3 H* (<1.0) mg/dL Med Orders - Current: Current Medications Acetaminophen (Tylenol) 650 mg PO Q6H PRN PRN Reason: Pain Last Admin: 05/25/16 23:50 Dose: 650 mg Hydrocodone Bitart/Acetaminophen ([place] 325-5 Mg) 1 - 2 tab PO Q4H PRN PRN Reason: Pain Enoxaparin Sodium (Lovenox) 40 mg SUBCUT DAILY [facility] Last Admin: 05/26/16 10:21 Dose: Not Given Ceftriaxone Sodium 2 gm/ (Sodium Chloride) 100 mls @ 200 mls/hr IV Q24H [facility] Magnesium Hydroxide (Milk Of Magnesia) 30 ml PO DAILY PRN PRN Reason: Constipation Miscellaneous Information (Remove Patch) 1 ea TRDERM DAILY [facility] Last Admin: 05/26/16 10:20 Dose: Not Given Morphine Sulfate (Morphine) 1 mg IVPUSH Q4H PRN PRN Reason: Pain Nicotine (Habitrol) 21 mg TRDERM DAILY [facility] Last Admin: 05/26/16 10:20 Dose: Not Given Rosuvastatin Calcium (Crestor) 10 mg PO Q48H [facility] Last Admin: 05/25/16 11:07 Dose: 10 mg Sodium Chloride (Saline Flush) 10 ml FLUSH ASDIRECTED PRN PRN Reason: Keep Vein Open Temazepam (Restoril) 30 mg PO BEDTIME PRN PRN Reason: Insomnia Discontinued Medications Acetaminophen (Tylenol) 650 mg PO NOW ONE Stop: 05/24/16 23:24 Last Admin: 05/24/16 23:52 Dose: 650 mg Sodium Chloride (Normal Saline) 1,000 mls @ 150 mls/hr IV ONETIME ONE Stop: 05/25/16 06:01 Last Admin: 05/25/16 04:07 Dose: Not Given Levofloxacin/Dextrose 750 mg/ (Premix) 150 mls @ 100 mls/hr IV ONETIME ONE Stop: 05/25/16 01:02 Last Admin: 05/24/16 23:52 Dose: 100 mls/hr Sodium Chloride (Normal Saline) 1,000 mls @ 999 mls/hr IV ONETIME ONE Stop: 05/25/16 00:34 Last Admin: 05/24/16 23:52 Dose: 999 mls/hr Sodium Chloride (Normal Saline) 1,000 mls @ 150 mls/hr IV ASDIRECTED [facility] Last Admin: 05/26/16 06:59 Dose: 150 mls/hr Ceftriaxone Sodium 2 gm/ (Sodium Chloride) 100 mls @ 200 mls/hr IV Q24H [facility] Last Admin: 05/26/16 12:16 Dose: 200 mls/hr Potassium Chloride (Potassium Chloride) 60 meq PO ONETIME ONE Stop: 05/26/16 10:36 Last Admin: 05/26/16 11:41 Dose: 60 meq Sodium Chloride (Saline Flush) 10 ml FLUSH ASDIRECTED PRN PRN Reason: Keep Vein Open Last Admin: 05/24/16 23:56 Dose: 10 ml - Exam Quality Assessment: Reports: DVT prophylaxis General: Reports: alert, oriented, cooperative, no acute distress HEENT: Reports: Pupils equal, Pupils reactive, EOMI, Mucous membr. moist/pink Neck: Reports: supple Lungs: Reports: Clear to auscultation, Normal respiratory effort Cardiovascular: Reports: Regular Rate, Regular Rhythm Abdomen: Reports: bowel sounds present, soft, no tenderness, no distension (Male) Exam: Other (urostomy) Rectal (Males) Exam: Deferred Skin: Reports: warm, dry, intact Neurological: Reports: no new focal deficit Psy/Mental Status: Reports: alert, normal affect, normal mood *Q Meaningful Use (DIS) - VTE *Q VTE Criteria *Q: - Stroke *Q Stroke Criteria *Q: - AMI *Q AMI Criteria *Q: <Luana Ross - Last Filed: 05/27/16 09:12> Discharge Summary - Hospital Course Free Text/Narrative:: See above for summary follow up as scheduled. - Discharge Diagnosis/Problem(s) (1) Bladder cancer SNOMED Code(s): 109556348 ICD Code: C67.9 - MALIGNANT NEOPLASM OF BLADDER, UNSPECIFIED Status: Acute Current Visit: Yes (2) Renal abscess SNOMED Code(s): 3991258 ICD Code: N15.1 - RENAL AND PERINEPHRIC ABSCESS Status: Acute Current Visit: Yes (3) Pyelonephritis SNOMED Code(s): 88548661 ICD Code: N12 - TUBULO-INTERSTITIAL NEPHRITIS, NOT SPCF ACUTE OR CHRONIC Status: Acute Current Visit: Yes - Patient Summary/Data Consults: Consultations 05/25/16 10:47 Consult to Manifest Clerk [CONS] Routine - Patient Data Vitals - Most Recent: Last Vital Signs Temp 37.1 C 05/27/16 05:06 Pulse 54 L 05/27/16 05:06 Resp 18 05/27/16 05:06 BP 121/76 05/27/16 05:06 Pulse Ox 97 05/27/16 05:06 I&O - Last 24 hours: Intake & Output 05/26/16 05/27/16 05/27/16 22:59 06:59 14:59 Intake Total 2910 1999 Output Total 9606 5610 Balance 1185 -1950 Lab Results - Last 24 hrs: Laboratory Results - last 24 hr 05/27/16 05/27/16 05/27/16 Range/Units 05:45 05:45 05:45 WBC 8.32 (4.23-9.07) K/mm3 RBC 3.88 L (4.63-6.08) M/mm3 Hgb 12.9 L (13.7-17.5) gm/L Hct 38.5 L (40.1-51.0) % MCV 99.2 H (79.0-92.2) fl MCH 33.2 H (25.7-32.2) pg MCHC 33.5 (32.2-35.5) g/dl RDW Std Deviation 49.8 H (35.1-43.9) fL Plt Count 166 (163-337) K/mm3 MPV 9.9 (9.4-12.3) fl Neut % (Auto) 52.4 (34.0-67.9) % Lymph % (Auto) 29.3 (21.8-53.1) % [place] % (Auto) 15.1 H (5.3-12.2) % Eos % (Auto) 2.3 (0.8-7.0) Baso % (Auto) 0.4 (0.1-1.2) % Neut # (Auto) 4.36 (1.78-5.38) K/mm3 Lymph # (Auto) 2.44 (1.32-3.57) K/mm3 [place] # (Auto) 1.26 H (0.30-0.82) K/mm3 Eos # (Auto) 0.19 (0.04-0.54) K/mm3 Baso # (Auto) 0.03 (0.01-0.08) K/mm3 Manual Slide Review Normal smear Sodium 138 (136-145) mEq/L Potassium 3.9 (3.5-5.1) mEq/L Chloride 107 (98-107) mEq/L Carbon Dioxide 21 (21-32) mEq/L Anion Gap 13.9 (5-15) BUN 14 (7-18) mg/dL Creatinine 1.1 (0.7-1.3) mg/dL Est Cr Clr Drug Dosing 83.67 mL/min Estimated GFR (MDRD) > 60 (>60) mL/min BUN/Creatinine Ratio 12.7 L (14-18) Glucose 108 H (74-106) mg/dL Lactic Acid 0.5 (0.4-2.0) mmol/L Calcium 8.4 L (8.5-10.1) mg/dL C-Reactive Protein 11.3 H* (<1.0) mg/dL Med Orders - Current: Current Medications Acetaminophen (Tylenol) 650 mg PO Q6H PRN PRN Reason: Pain Last Admin: 05/25/16 23:50 Dose: 650 mg Hydrocodone Bitart/Acetaminophen ([place] 325-5 Mg) 1 - 2 tab PO Q4H PRN PRN Reason: Pain Enoxaparin Sodium (Lovenox) 40 mg SUBCUT DAILY [facility] Last Admin: 05/26/16 10:21 Dose: Not Given Ceftriaxone Sodium 2 gm/ (Sodium Chloride) 100 mls @ 200 mls/hr IV Q24H [facility] Last Admin: 05/27/16 09:01 Dose: 200 mls/hr Magnesium Hydroxide (Milk Of Magnesia) 30 ml PO DAILY PRN PRN Reason: Constipation Miscellaneous Information (Remove Patch) 1 ea TRDERM DAILY [facility] Last Admin: 05/26/16 10:20 Dose: Not Given Morphine Sulfate (Morphine) 1 mg IVPUSH Q4H PRN PRN Reason: Pain Nicotine (Habitrol) 21 mg TRDERM DAILY [facility] Last Admin: 05/26/16 10:20 Dose: Not Given Rosuvastatin Calcium (Crestor) 10 mg PO Q48H [facility] Last Admin: 05/25/16 11:07 Dose: 10 mg Sodium Chloride (Saline Flush) 10 ml FLUSH ASDIRECTED PRN PRN Reason: Keep Vein Open Temazepam (Restoril) 30 mg PO BEDTIME PRN PRN Reason: Insomnia Discontinued Medications Acetaminophen (Tylenol) 650 mg PO NOW ONE Stop: 05/24/16 23:24 Last Admin: 05/24/16 23:52 Dose: 650 mg Sodium Chloride (Normal Saline) 1,000 mls @ 150 mls/hr IV ONETIME ONE Stop: 05/25/16 06:01 Last Admin: 05/25/16 04:07 Dose: Not Given Levofloxacin/Dextrose 750 mg/ (Premix) 150 mls @ 100 mls/hr IV ONETIME ONE Stop: 05/25/16 01:02 Last Admin: 05/24/16 23:52 Dose: 100 mls/hr Sodium Chloride (Normal Saline) 1,000 mls @ 999 mls/hr IV ONETIME ONE Stop: 05/25/16 00:34 Last Admin: 05/24/16 23:52 Dose: 999 mls/hr Sodium Chloride (Normal Saline) 1,000 mls @ 150 mls/hr IV ASDIRECTED [facility] Last Admin: 05/26/16 06:59 Dose: 150 mls/hr Ceftriaxone Sodium 2 gm/ (Sodium Chloride) 100 mls @ 200 mls/hr IV Q24H [facility] Last Admin: 05/26/16 12:16 Dose: 200 mls/hr Potassium Chloride (Potassium Chloride) 60 meq PO ONETIME ONE Stop: 05/26/16 10:36 Last Admin: 05/26/16 11:41 Dose: 60 meq Sodium Chloride (Saline Flush) 10 ml FLUSH ASDIRECTED PRN PRN Reason: Keep Vein Open Last Admin: 05/24/16 23:56 Dose: 10 ml *Q Meaningful Use (DIS) - VTE *Q VTE Criteria *Q: - Stroke *Q Stroke Criteria *Q: - AMI *Q AMI Criteria *Q:
[2016-05-27] MEDS: Nicotine 21 MG/24 Hr Patch TRDERM SCH (09:14)
[2016-05-27] MEDS: Enoxaparin 40 MG/0.4 ML Syringe SUBCUT SCH (09:14)
[2016-05-27] MEDS: REMOVE NICOTINE TRDERM SCH (09:14)
[2016-05-27 09:15] VITALS: BP 115/72
[2016-05-27] MEDS ORDERED: cefTRIAXone 2 GM in Sodium Chloride 0.9% 100 ML IV SCH (10:00)
== END 2016-05-27 10:00 | disposition home or self-care (01) | DRG 463 ==
LOC: JD.ED 21:10 → JD.MS 05-25
PROVIDERS: ADMIT Internal Medicine Cardiovascular Disease; ATTEND Internal Medicine Cardiovascular Disease
DX: N12 Tubulo-interstitial nephritis, not specified as acute or chronic (principal); Z85.51 Personal history of malignant neoplasm of bladder; N15.1 Renal and perinephric abscess; Z93.6 Other artificial openings of urinary tract status; Z87.440 Personal history of urinary (tract) infections; Z88.2 Allergy status to sulfonamides; Z88.1 Allergy status to other antibiotic agents; Z79.899 Other long term (current) drug therapy; E78.00 Pure hypercholesterolemia, unspecified; K50.90 Crohn's disease, unspecified, without complications; Z87.442 Personal history of urinary calculi; F17.200 Nicotine dependence, unspecified, uncomplicated
CPT/HCPCS: 36415; 74176; 74176-26; 80048; 83605; 85025; 86140; 87040; 87086; 87088; 87184; 87186; 96365; 99284; 99285-25; A9270-GY; J0696; J1956; J7030; J7040; J7050

== ENCOUNTER → 2021-11-10 | Day surgery (SDC) | payer BC ==
[~2021-11-10] MED LIST: Bupivacaine 0.5%/EPINEPHrine 1:200,000 30 ML SDV INJECT ONE; Lactated Ringers 1,000 ML IV ONE; Lidocaine 1% 10 ML MDV INJECT ONE; Midazolam 1 MG/ML 2 ML SDV IV ONE; Propofol 200 MG/20 ML SDV IV ONE; fentaNYL 100 MCG/2 ML SDV IV ONE
== END ==
LOC: JD.ED 08:00 → JD.SDS 08:30
PROVIDERS: ATTEND Surgery
DX: L02.411 Cutaneous abscess of right axilla (principal); I10 Essential (primary) hypertension; F17.210 Nicotine dependence, cigarettes, uncomplicated; E78.5 Hyperlipidemia, unspecified; Z88.1 Allergy status to other antibiotic agents; Z79.899 Other long term (current) drug therapy; Z98.890 Other specified postprocedural states

== ENCOUNTER 2024-04-19 13:04 | Emergency (ER) | payer BC ==
[2024-04-19 13:52] LABS: BASOPHILS ABSOLUTE AUTO 0.1 K/mm3 (0.0-0.2); BASOPHILS PERCENT AUTO 0.6 % (0.0-1.0); EOSINOPHILS ABSOLUTE AUTO 0.4 K/mm3 (0.0-0.4); EOSINOPHILS PERCENT AUTO 5.4 % (0.0-6.0); HEMATOCRIT 41.6 % (42.0-52.0); HEMOGLOBIN 14.2 gm/dl (14.0-18.0); IMMATURE GRAN ABSOLUTE AUTO 0.03 K/mm3 (0.00-0.05); IMMATURE GRAN PERCENT AUTO 0.4 % (0.0-0.4); LYMPHOCYTES ABSOLUTE AUTO 2.1 K/mm3 (1.0-4.8); LYMPHOCYTES PERCENT AUTO 26.3 % (24.0-44.0); MEAN CORPUSCULAR HEMOGLOBIN 34.1 pg (28.0-32.0); MEAN CORPUSCULAR HGB CONC 34.1 g/dl (32.0-36.0); MEAN CORPUSCULAR VOLUME 99.8 fl (83.0-99.0); MONOCYTES ABSOLUTE AUTO 0.6 K/mm3 (0.0-0.8); MONOCYTES PERCENT AUTO 7.7 % (0.0-8.0); NEUTROPHILS ABSOLUTE AUTO 4.7 K/mm3 (1.8-7.7); NEUTROPHILS PERCENT AUTO 59.6 % (41.0-71.0); PLATELET COUNT,PLT 135 K/mm3 (150-400); RED BLOOD CELL COUNT 4.17 M/mm3 (4.52-5.90); WHITE BLOOD CELL COUNT,WBC 7.92 K/mm3 (3.9-11.3)
[2024-04-19 14:11] LABS: INR 1.12; PROTHROMBIN TIME 11.8 SECONDS (9.7-12.0)
[2024-04-19 14:24] LABS: A/G RATIO 0.8 (1-2); ALBUMIN 3.4 g/dl (3.4-5.0); ANION GAP 15.1 (5-15); BILIRUBIN TOTAL 0.6 mg/dL (0.2-1.0); CALCIUM 8.5 mg/dL (8.5-10.1); CREATININE 1.5 mg/dL (0.7-1.3); EST CRCL DRUG DOSING (CG) 55.78 mL/min; MAGNESIUM 1.9 mg/dL (1.8-2.4); POTASSIUM,K 3.1 mEq/L (3.5-5.1); PROTEIN TOTAL,TP 7.8 g/dl (6.4-8.2)
[2024-04-19] MEDS: Dexamethasone 6 MG TABLET PO STA (15:37)
[2024-04-19] MEDS: Potassium Chloride 20 MEQ Tab.ER PO ONE (15:37)
[2024-04-19 16:45] VITALS: BP 136/69; PULSE 102
== END 2024-04-19 16:18 | disposition home or self-care (01) ==
LOC: JD.ED 13:04
DX: J67.9 Hypersensitivity pneumonitis due to unspecified organic dust (principal); N18.9 Chronic kidney disease, unspecified; E87.6 Hypokalemia; C44.91 Basal cell carcinoma of skin, unspecified; E78.00 Pure hypercholesterolemia, unspecified; Z88.2 Allergy status to sulfonamides; Z79.899 Other long term (current) drug therapy
CPT/HCPCS: 36415; 71045; 80053; 82550; 83735; 83880; 84484; 85025; 85610; 87428; 93005; 93971; 99285; A9270; J8540; 71046; 71046-26; 93010; 99284